=== PATIENT | female | born 1970 | race African-American/Black ===

== ENCOUNTER 2016-12-21 10:03 | Emergency (ER) | payer OTHER ==
[2016-12-21 10:10] VITALS: BP 170/117; BMI 47.4
[2016-12-21] MEDS ORDERED: ACETAMINOPHEN 500 MG TABLET (FP) PO ONE (10:24)
[2016-12-21] MEDS ORDERED: ACETAMINOPHEN 325 MG TABLET (FP) ONE (10:28)
--- NOTE | 2016-12-21 10:32 | PDOC ---
History of Present Illness - General Chief Complaint: Respiratory Stated Complaint: FLU LIKE SYMPTOMS Time Seen by Provider: 12/21/16 10:14 History Source: Patient Exam Limitations: No Limitations - History of Present Illness Initial Comments: 12/21/16 11:02 46-year-old female presents to the ED with complaints of sore throat and fever since yesterday. Patient denies headache, abdominal pain, vomiting, dysuria diarrhea. Patient states her partner with sore throat 2 days prior but denies any history of strep throat or tonsillitis. Patient has a history of hypertension diabetes and states her BGM 2 days ago was 123. Severity: reports: mild Possible Cause: Yes: no prior episodes Associated Symptoms: reports: fever/chills, sore throat Past History - Past Medical History Allergies/Adverse Reactions: Allergies Allergy/AdvReac Type Severity Reaction Status Date / Time No Known Allergies Allergy Verified 12/21/16 10:22 Home Medications: Ambulatory Orders Azithromycin [Zithromax 250mg Tablets -] 250 mg PO UTDICT #6 tab 12/21/16 Hydrochlorothiazide [Hctz -] 50 mg PO DAILY 12/21/16 Metformin HCl 500 mg PO BID 12/21/16 Diabetes: Yes HTN: Yes - Surgical History Abdominal Surgery: Yes (hernia) Appendectomy: Yes - Psycho/Social/Smoking Cessation Hx Anxiety: No Suicidal Ideation: No Smoking History: Never smoked Have you smoked in the past 12 months: No Information on smoking cessation initiated: No Hx Alcohol Use: No Drug/Substance Use Hx: No Substance Use Type: None Patient Lives Alone: No Lives with/in: spouse/SO Review of Systems - Review of Systems Able to Perform ROS?: Yes Constitutional: Yes: Fever HEENTM: Yes: Throat Pain Respiratory: No: Symptoms reported Cardiac (ROS): No: Symptoms Reported ABD/GI: No: Symptoms Reported : No: Symptoms Reported Musculoskeletal: No: Symptoms Reported Integumentary: No: Symptoms Reported Neurological: No: Symptoms reported *Physical Exam - Vital Signs Last Vital Signs Temp Pulse Resp BP Pulse Ox 101.1 F H 103 H 18 170/117 97 12/21/16 10:06 12/21/16 10:06 12/21/16 10:06 12/21/16 10:06 12/21/16 10:06 - Physical Exam General Appearance: Yes: Nourished, Appropriately Dressed. No: Apparent Distress HEENT: positive: EOMI, TABITHA, TMs Normal, Pharyngeal Erythema (3+nonexudative tonsils) Neck: positive: Supple. negative: Lymphadenopathy (R), Lymphadenopathy (L) Respiratory/Chest: positive: Lungs Clear, Normal Breath Sounds. negative: Respiratory Distress, Accessory Muscle Use Cardiovascular: positive: Regular Rhythm, Tachycardia. negative: Murmur Gastrointestinal/Abdominal: positive: Soft. negative: Tenderness Integumentary: positive: Normal Color, Warm, Moist Neurologic: positive: Motor Strength 5/5 (ambulatory) Medical Decision Making - Medical Decision Making 12/21/16 11:00 Patient complains of fever and sore throat. Patient on exam had 3+ erythematous tonsils concerning for strep. Patient ordered for rapid strep and Tylenol secondary to fever of 101.2 in triage. 12/21/16 11:12 Positive for beta strep group a. Patient be discharged home with [facility]. Will check temperature again . *DC/Admit/Observation/Transfer Diagnosis at time of Disposition: Acute streptococcal pharyngitis - Discharge Dispostion Disposition: HOME Condition at time of disposition: Improved - Prescriptions Prescriptions: Azithromycin [Zithromax 250mg Tablets -] 250 mg PO UTDICT #6 tab - Patient Instructions Printed Discharge Instructions: DI for Strep Throat Additional Instructions: Please take antibiotics as prescribed until completed. May take Motrin or Tylenol for discomfort or fever. Stay well-hydrated. Avoid harsh nonabrasive foods. Do not share your utensils or toothbrush with anyone for the next 24 hours after beginning your azithromycin.
[2016-12-21 11:10] VITALS: PULSE 82; TEMP 98.9
== END 2016-12-21 11:19 | disposition home or self-care (01) ==
LOC: JERFT 10:03
DX: J02.0 Streptococcal pharyngitis (principal); B95.0 Streptococcus, group A, as the cause of diseases classified elsewhere; I10 Essential (primary) hypertension; E11.9 Type 2 diabetes mellitus without complications; Z79.84 Long term (current) use of oral hypoglycemic drugs
CPT/HCPCS: 87070; 87077; 87430; 99281-25

== ENCOUNTER 2017-01-01 12:30 | Emergency (ER) | payer OTHER ==
[2017-01-01 12:46] VITALS: BP 169/116; PULSE 72; TEMP 97.9; BMI 48.9
[2017-01-01] MEDS ORDERED: IBUPROFEN 400 MG TABLET (FP) PO ONE (13:52)
--- NOTE | 2017-01-01 14:20 | PDOC ---
History of Present Illness - General Chief Complaint: Pain Stated Complaint: LT ANKLE PAIN Time Seen by Provider: 01/01/17 13:33 History Source: Patient - History of Present Illness Occurred: reports: this morning Severity: Yes: severe Lower Extremity Pain Location: left: ankle Past History - Past Medical History Allergies/Adverse Reactions: Allergies Allergy/AdvReac Type Severity Reaction Status Date / Time No Known Allergies Allergy Verified 01/01/17 12:40 Home Medications: Ambulatory Orders Azithromycin [Zithromax 250mg Tablets -] 250 mg PO UTDICT #6 tab 12/21/16 Hydrochlorothiazide [Hctz -] 50 mg PO DAILY 12/21/16 Metformin HCl 500 mg PO BID 12/21/16 Ibuprofen [Motrin -] 800 mg PO TID #21 tablet 01/01/17 Diabetes: Yes HTN: Yes - Surgical History Abdominal Surgery: Yes (hernia) Appendectomy: Yes - Psycho/Social/Smoking Cessation Hx Anxiety: No Suicidal Ideation: No Smoking History: Never smoked Have you smoked in the past 12 months: No Hx Alcohol Use: No Drug/Substance Use Hx: No Substance Use Type: None Review of Systems - Review of Systems Constitutional: No: Chills, Fever Musculoskeletal: Yes: Joint Pain, Joint Swelling *Physical Exam - Vital Signs Last Vital Signs Temp Pulse Resp BP Pulse Ox 97.9 F 72 19 169/116 100 01/01/17 12:40 01/01/17 12:40 01/01/17 12:40 01/01/17 12:40 01/01/17 12:40 - Physical Exam General Appearance: Yes: Appropriately Dressed, Moderate Distress HEENT: positive: Normal Voice Neck: positive: Supple Respiratory/Chest: negative: Respiratory Distress Integumentary: positive: Dry, Warm, Swelling (to lateral malleolus of L ankle w / sig ttp, o overylign erythema) Neurologic: positive: Fully Oriented, Alert, Normal Mood/Affect ED Treatment Course - RADIOLOGY Radiology Studies Ordered: Category Date Time Status ANKLE & FOOT-LEFT* [RAD] Stat Radiology 01/01/17 13:52 Ordered Medical Decision Making - Medical Decision Making 01/01/17 13:54 46 yo F, h/o HTN and DM, here w/ atraumatic L ankle pain and swelling that she awoke with this am. States ankle was mildly aching yesterday. No trauma or other inciting agents. No f/c. No h/o gout. No h/o similar episode See exam Atraumatic L ankle pain +swelling/tenderness to lateral malleolus of L ankle No e/o infection No h/o gout -pain control -will get XR given degree of sxs 01/01/17 15:33 01/01/17 15:34 XR neg for fx. [place] p;laced in ED. Dc w/ pain meds and ortho f/u *DC/Admit/Observation/Transfer Diagnosis at time of Disposition: Ankle swelling Qualifiers: Laterality: left Qualified Code(s): M25.472 - Effusion, left ankle - Discharge Dispostion Disposition: HOME Condition at time of disposition: Improved - Prescriptions Prescriptions: Ibuprofen [Motrin -] 800 mg PO TID #21 tablet - Patient Instructions Printed Discharge Instructions: Ankle Sprain Additional Instructions: Your XR does not show a fracture Take motrin as needed for pain Follow up with Dr Rivers of orthopedics in 1-2 weeks if symptoms persist
== END 2017-01-01 15:39 | disposition home or self-care (01) ==
LOC: JERFT 12:30
DX: M25.472 Effusion, left ankle (principal); I10 Essential (primary) hypertension; E11.9 Type 2 diabetes mellitus without complications; Z79.84 Long term (current) use of oral hypoglycemic drugs
CPT/HCPCS: 73610-TC-LT; 73630-TC-LT; 99281-25

== ENCOUNTER 2018-10-09 21:43 | Emergency (ER) | payer OTHER ==
[2018-10-09 21:51] VITALS: BP 155/55; PULSE 82; TEMP 97.8; BMI 55.9
--- NOTE | 2018-10-09 22:17 | PDOC ---
History of Present Illness - General Chief Complaint: Injury Stated Complaint: FALL Time Seen by Provider: 10/09/18 21:55 - History of Present Illness Initial Comments: 10/09/18 22:14 48-year-old female with a past medical history significant for hypertension diabetes presents for evaluation of right knee pain. She states she was coming out of a restaurant lost her footing fell onto her left knee and her right knee somehow got hyperflexed behind her. She points to the anterior aspect of the right knee as the area of her discomfort. Past History - Past Medical History Allergies/Adverse Reactions: Allergies Allergy/AdvReac Type Severity Reaction Status Date / Time No Known Allergies Allergy Verified 10/09/18 21:49 Home Medications: Ambulatory Orders Hydrochlorothiazide [Hctz -] 50 mg PO DAILY 12/21/16 metFORMIN HCL [Metformin HCl] 500 mg PO BID 12/21/16 COPD: No Diabetes: Yes HTN: Yes - Surgical History Abdominal Surgery: Yes (hernia) Appendectomy: Yes - Suicide/Smoking/Psychosocial Hx Smoking History: Never smoked Have you smoked in the past 12 months: No Hx Alcohol Use: No Drug/Substance Use Hx: No Substance Use Type: None Review of Systems - Review of Systems Musculoskeletal: Yes: Joint Pain *Physical Exam - Vital Signs Last Vital Signs Temp Pulse Resp BP Pulse Ox 97.8 F 82 16 155/55 L 95 10/09/18 21:46 10/09/18 21:46 10/09/18 21:46 10/09/18 21:46 10/09/18 21:46 - Physical Exam Comments: 10/09/18 22:14 Right knee range of motion 0-90 with pain at terminal flexion. There is no tenderness about the medial or lateral tibial plateau, medial lateral joint line. Patella tendon quadricep tendon or patella. There is no evidence of instability her extensor mechanism is intact her thighs and calves are soft and nontender and she has no gross sensorimotor deficits. NV intact. Medical Decision Making - Medical Decision Making 10/09/18 22:15 I will forego x-rays. Patient has no tenderness about her knee. She has subjective pain with flexion to 90. I do not suspect an acute fracture. She may weight-bear as tolerated with crutches and follow-up with orthopedic surgery in 1-2 days I've advised her on the use of Tylenol for pain. *DC/Admit/Observation/Transfer Diagnosis at time of Disposition: Knee strain - Discharge Dispostion Disposition: HOME Condition at time of disposition: Stable Decision to Admit order: No - Referrals Referrals: Mike Bruce DO [Staff Physician] - - Patient Instructions Printed Discharge Instructions: Quadriceps Strain, Contusion Additional Instructions: You may weight-bear as tolerated with the use of crutches. Follow-up with orthopedic surgery in 1-2 days for further evaluation and treatment options. Tylenol as directed for pain. Return to the emergency room for worsening symptoms. - Post Discharge Activity
== END 2018-10-09 22:25 | disposition home or self-care (01) ==
LOC: JERFT 21:43
DX: S83.8X1A Sprain of other specified parts of right knee, initial encounter (principal); W18.39XA Other fall on same level, initial encounter; Y93.89 Activity, other specified; Y92.511 Restaurant or cafe as the place of occurrence of the external cause; Y99.8 Other external cause status; I10 Essential (primary) hypertension; E11.9 Type 2 diabetes mellitus without complications; Z79.84 Long term (current) use of oral hypoglycemic drugs
CPT/HCPCS: 99281-25